=== PATIENT | female | born 1990 | race Caucasian/White ===

== ENCOUNTER 2024-12-26 02:55 | Emergency (ER) | payer MEDICARE, OTHER ==
[~2024-12-26] VITALS: Ht 157.5 cm; Wt 81.6 kg
[2024-12-26] MEDS ORDERED: ONDANSETRON HCL/PF 4 MG/2 ML VIAL ONE (03:32)
[2024-12-26 04:10] LABS: PLATELET COUNT (AUTO) 144 K/uL (150-450); RED BLOOD CELL COUNT(AUTO) 4.16 MIL/uL (4.0-5.2); RED CELL DISTRIBUTION WIDTH 18.2 % (11.5-15.0); WHITE BLOOD COUNT (AUTO) 8.6 K/uL (4.3-11.0)
[2024-12-26] MEDS: IV NS 0.9% 1,000 ML BAG IV ONE (04:16)
[2024-12-26] MEDS: ONDANSETRON HCL/PF 4 MG/2 ML VIAL IV ONE (04:16)
[2024-12-26 04:20] LABS: CALCIUM, SERUM 9.1 mg/dL (8.5-10.1); CREATININE 0.7 mg/dL (0.6-1.3); SODIUM SERUM 142.0 mmol/L (136-145); UREA NITROGEN, BLOOD 13.0 mg/dL (7-18)
[2024-12-26 04:27] LABS: ASPARTATE AMINOTRANSFERASE 82.0 U/L (15-37); TOTAL PROTEIN, SERUM 6.3 g/dL (6.4-8.2)
[2024-12-26] MEDS ORDERED: ONDA4TAB5 PO (04:40)
[2024-12-26 06:08] VITALS: BP 104/92; TEMP 98.2; O2SAT 95
== END 2024-12-26 06:08 | disposition home or self-care (01) ==
LOC: ER 03:00
DX: R00.2 Palpitations (principal); R06.02 Shortness of breath; R11.0 Nausea; R79.89 Other specified abnormal findings of blood chemistry; E86.0 Dehydration; Z88.1 Allergy status to other antibiotic agents; Z88.5 Allergy status to narcotic agent; Z94.84 Stem cells transplant status; Z88.8 Allergy status to other drugs, medicaments and biological substances
CPT/HCPCS: 99285; 96374; 71045; 96361; 93005; 85025; 83735; 36415; 84443; 80053; 84484; J2405; J7030